=== PATIENT | female | born 1985 | race Caucasian/White ===

== ENCOUNTER 2020-02-02 08:39 | Outpatient (CLI) | payer OTHER ==
--- NOTE | 2020-02-03 01:46 | Ultrasound Report ---
Reason: UTERINE SIZE DATE DISCREPANCY Procedure Date: 02/02/2020 Accession Number: [id number] / [id number] Procedure: US - OB F/U or Repeat CPT Code: Final Report FULL RESULT: EXAM: FOLLOW-UP OBSTETRICAL ULTRASOUND EXAM DATE: 02/02/2020 09:39 AM. CLINICAL HISTORY: UTERINE SIZE DATE DISCREPANCY. COMPARISON: None. TECHNIQUE: Real-time sonographic evaluation of the fetus performed by the accounting professor. Multiple airport representative static images were saved for review. DATING: Established EGA 35 weeks 6 days with KYLE 03/02/2020 based on LMP. EGA 36 weeks 4 days with KYLE 02/26/2020 based on prior ultrasound. EGA 38 weeks 2 days with KYLE 02/14/2020 based on the current ultrasound. GENERAL EVALUATION Bustillo . Cardiac activity: 134 bpm. movement: Visualized. Presentation: Cephalic. Placenta: Anterior position. Amniotic fluid: Normal. JAXON 18.2 cm. MVP 5.2 cm. BIOMETRY Bi-Parietal Diameter (BPD): 9.4 cm, 38 weeks 3 days Head Circumference (HC): 33.8 cm, 38 weeks 5 days Abdominal Circumference (AC): 34.5 cm, 38 weeks 3 days Femur Length (FL): 7.4 cm, 37 weeks 5 days Estimated Weight: 3444 g, 96.9 percentile for 35 weeks 6 days. MATERNAL STRUCTURES Cervix: Not well seen. IMPRESSION: 1. Bustillo live intrauterine with gestational age 35 weeks 6 days based on LMP. 2. Macrosomia. Estimated weight at 96.9 percentile for 35 weeks 6 days. RADIA
== END 2020-02-02 08:40 | disposition home or self-care (01) ==
LOC: DI 08:39
PROVIDERS: ATTEND Nurse Practitioner Obstetrics & Gynecology
DX: O36.63X0 Maternal care for excessive fetal growth, third trimester, not applicable or unspecified (principal); Z3A.35 35 weeks gestation of pregnancy
CPT/HCPCS: 76816

== ENCOUNTER 2020-02-05 08:00 | Outpatient (CLI) | payer OTHER ==
[2020-02-05 19:33] LABS: TRICHOMONAS VAGINALIS DNA NEGATIVE (NEGATIVE)
== END 2020-02-05 23:59 | disposition home or self-care (01) ==
LOC: LAB.R 08:00
PROVIDERS: ATTEND Obstetrics & Gynecology
DX: Z36.85 Encounter for antenatal screening for Streptococcus B (principal)
CPT/HCPCS: 87491; 87591; 87661; 87797

== ENCOUNTER 2020-02-16 14:15 | Outpatient (CLI) | payer OTHER ==
[2020-02-16 14:43] VITALS: BP 137/84
[2020-02-16 15:17] LABS: CREATININE,URINE 85.7 mg/dL; PROTEIN/CREATININE RATIO,URINE 0.1 (<=0.2)
--- NOTE | 2020-02-16 15:43 | PROVIDER PROGRESS NOTE ---
- HPI Chief Complaint: Other (34yo G1 at 37 6/7 weeks presents with c/o increased swelling over the past couple of days. Was told in clinic had increased although not abnormal BP 130's/80's. Had a headache yesterday that spontaneously resolved. No other complaints now. No n/v/f/c or dysuria. No headache or visual changes. No epigastric or RUQ pain. Normal activity. Rare mild contraction. No fluid leak or bleeding.) Current : Current EDU 03/02/20 Gestation 37 Weeks and 6 Days 1 Para 0 Vital Signs Temperature 98.2 F 02/16/20 14:33 Heart Rate 91 02/16/20 14:33 Respiratory Rate 18 02/16/20 14:33 Blood Pressure 137/84 H 02/16/20 14:33 O2 Saturation 99 02/16/20 14:33 Temperature 98.2 F 02/16/20 14:33 Heart Rate 91 02/16/20 14:33 Respiratory Rate 18 02/16/20 14:33 Blood Pressure 137/84 H 02/16/20 14:33 O2 Saturation 99 02/16/20 14:33 - Procedures OB Procedure Performed: NST Diagnosis/Indication for NST: Other (See above) NST Procedure: Reactive. Category 1 Service Date of procedure: 02/16/20 Procedure Details: NST done. See above. Few mild contractions Findings: Abd soft, non-tender. Rpt BP (sitting) 124/84 VE deferred. - Plan Plan: DC home. Precautions given. Plan f/u on 02/18.
== END 2020-02-16 15:37 | disposition home or self-care (01) ==
LOC: WFO 14:15 → FBP 14:17 → WFO 15:37
PROVIDERS: ATTEND Obstetrics & Gynecology
DX: O12.03 Gestational edema, third trimester (principal); Z3A.37 37 weeks gestation of pregnancy
CPT/HCPCS: 82570; 84156; 99214

== ENCOUNTER 2020-03-05 13:35 | Observation (INO) | payer OTHER ==
[2020-03-05] MEDS ORDERED: SODIUM CHLORIDE FLUSH 0.9% 10 ML SYRINGE IVP PRN (13:37)
[2020-03-05] MEDS ORDERED: ONDANSETRON ODT 4 MG TABLET TL PRN (13:37)
[2020-03-05] MEDS ORDERED: ACETAMINOPHEN 325 MG TABLET PO PRN (13:37)
[2020-03-05] MEDS ORDERED: miSOPROStoL 100 MCG TABLET BC ONE (13:42)
[2020-03-05] MEDS ORDERED: LACTATED RINGERS 1,000 ML IV SCH (14:00)
[2020-03-05 14:40] LABS: BASOPHILS # (AUTO) 0.1 10^3/uL (0.0-0.1); BASOPHILS % (AUTO) 0.6 %; EOSINOPHILS # (AUTO) 0.5 10^3/uL (0.0-0.7); EOSINOPHILS % (AUTO) 4.5 %; HGB - HEMOGLOBIN 12.7 g/dL (12.0-16.0); LYMPHOCYTES # (AUTO) 1.1 10^3/uL (1.5-3.5); LYMPHOCYTES % (AUTO) 10.6 %; MEAN CORPUSCULAR HEMOGLOBIN 31.5 pg (27.0-31.0); MEAN CORPUSCULAR HGB CONC 34.7 g/dL (32.0-36.0); MEAN CORPUSCULAR VOLUME 90.8 fL (81.0-99.0); MONOCYTES # (AUTO) 0.7 10^3/uL (0.0-1.0); MONOCYTES % (AUTO) 6.1 %; NEUTROPHILS # (AUTO) 8.3 10^3/uL (1.5-6.6); NEUTROPHILS % (AUTO) 77.5 %; PLT - PLATELET COUNT 166 10^3/uL (130-450); RED BLOOD COUNT 4.03 10^6/uL (4.20-5.40); RED CELL DISTRIBUTION WIDTH 11.9 % (12.0-15.0); WHITE BLOOD COUNT 10.7 x10^3/uL (4.8-10.8)
[2020-03-05 15:04] LABS: CREATININE 0.7 mg/dL (0.4-1.0)
[2020-03-05 16:47] VITALS: BP 137/87
[2020-03-05] MEDS ORDERED: SODIUM CHLORIDE FLUSH 0.9% 10 ML SYRINGE IVP SCH (17:00)
--- NOTE | 2020-03-06 17:39 | HISTORY & PHYSICAL EXAMINATION ---
Chief Complaint - Chief Complaint Chief Complaint: Outpatient cervical ripening for pending post dates History of Present Illness - Admitted From Admitted From:: clinic - History Obtained From Records Reviewed: yes History obtained from: patient and records - History of Present Illness HPI Comment/Other: Patient is a 34-year-old G1, P0 at 40+3 weeks estimated gestational age here for induction of labor for pending postdates. She presents for outpatient cervical ripening. Had clinic visit a few hours prior to presentation ant vertex was confirmed and SVE was 2/80/-1 station. GBS negative. No contractions/VB/LOF. Meds/Allgy - Allergies Allergies/Adverse Reactions: Allergies Allergy/AdvReac Type Severity Reaction Status Date / Time iodine Allergy Rash Verified 03/05/20 14:28 Sulfa (Sulfonamide Allergy Rash Verified 03/05/20 14:28 Antibiotics) Review of Systems - Other Findings Other Findings: As per HPI otherwise remaining systems are negative. Exam - Vital Signs Reviewed Vital Signs: Yes - Physical Exam General Appearance: positive: No acute distress Respiratory: positive: No respiratory distress Abdomen: positive: Other (gravid, S&NT/ND) Skin: positive: Color nml Comments/Other: exam performed in clinic Conclusion/Plan - Lab Results Fish Bones: 03/05/20 14:20 03/05/20 14:45 - Other Other Results/Comments: Outpatient cervical ripening Confirmed vertex today in clinic SVE 2/80/-1 an hour prior to presentation Misoprostol 25 mcg BCx1 followed with 4 hours of cEFM If monitoring is Cat I and patient shows no sign of labor or distress, will DC to home after 4 hours of observation is complete
--- NOTE | 2020-03-07 12:01 | PROVIDER PROGRESS NOTE ---
- HPI Chief Complaint: Other (misoprostal cervical ripening.) Current : Current EDU 03/02/20 Gestation 40 Weeks and 3 Days 1 Vital Signs Temperature 37.1 C 03/05/20 13:57 Heart Rate 86 03/05/20 13:57 Respiratory Rate 18 03/05/20 13:57 Blood Pressure 133/85 H 03/05/20 13:57 O2 Saturation 100 03/05/20 13:57 Temperature 36.9 C 03/05/20 16:45 Heart Rate 81 03/05/20 16:45 Respiratory Rate 18 03/05/20 16:45 Blood Pressure 137/87 H 03/05/20 16:45 O2 Saturation 100 03/05/20 16:45 - Procedures OB Procedure Performed: NST (reactive NST with negative [employer]) Diagnosis/Indication for NST: Other (out pt ripening) NST Procedure: reactive NST with negative [employer] - Plan Plan: return tomorrow or when in labor.
== END 2020-03-05 18:52 | disposition home or self-care (01) ==
LOC: WFO 13:35 → FBP 13:35 → WFO 13:36 → FBP 13:36 → WFO 13:42 → FBP 13:44 → WFO 13:44
PROVIDERS: ADMIT Obstetrics & Gynecology; ATTEND Obstetrics & Gynecology
DX: Z34.03 Encounter for supervision of normal first pregnancy, third trimester (principal)
CPT/HCPCS: 36415; 82565; 84450; 85025; A9270; G0378

== ENCOUNTER 2020-03-06 13:13 | Inpatient (IN) | payer OTHER ==
[2020-03-06] MEDS ORDERED: LACTATED RINGERS 1,000 ML IV ONE (14:33)
[2020-03-06] MEDS ORDERED: OXYTOCIN/SODIUM CHLORIDE 500 ML IV ONE (14:33)
[2020-03-06] MEDS ORDERED: ONDANSETRON ODT 4 MG TABLET TL PRN (14:46)
[2020-03-06] MEDS ORDERED: miSOPROStoL 200 MCG TABLET PR PRN (14:46)
[2020-03-06] MEDS ORDERED: METHYLERGONOVINE 0.2 MG/ML VIAL IM PRN (14:46)
[2020-03-06] MEDS ORDERED: ONDANSETRON 4 MG/2 ML VIAL IVP PRN (14:46)
[2020-03-06] MEDS ORDERED: CARBOPROST TROMETHAMINE 250 MCG/ML AMP IM PRN (14:46)
[2020-03-06] MEDS ORDERED: SODIUM CHLORIDE FLUSH 0.9% 10 ML SYRINGE IVP PRN (14:46)
[2020-03-06] MEDS ORDERED: OXYTOCIN/SODIUM CHLORIDE 500 ML IV PRN (14:46)
--- NOTE | 2020-03-06 14:56 | HISTORY & PHYSICAL EXAMINATION ---
Admit History - Visit Reason Visit Reason: Other (Induction of labor) - : 1 Parity: 0 Care: positive: [facility] Risk/History: positive: Other (pending post dates) Complications This : positive: None Smoking Status: Never smoker - Other Maternal History Other Maternal History: Patient is a 34-year-old G1, P0 at 40+4 weeks estimated gestational age here for induction of labor for pending postdates. Patient presented yesterday evening for outpatient cervical ripening. She received 1 dose of misoprostol 25 mcg BC x1. She presents today for induction with Pitocin. Has been intermittent contractions. No loss of fluid, no vaginal bleeding. Endorses movement. generally uncomplicated other than potentially macrosomic . LGA : EFW 3444g 96.9%il on 02/02/20 LMP 05/27/2020. Initial U/S: 07/25/2019 @ 8.0wks c/w LMP dating. O pos/Rubella immune Genetic testing: Serum integrated screen - negative; CF neg FAS: 10/16/2020 WNL. Anterior placenta, no previa. 3VC. LGA (94%tile). Glucola 105 TDAP 12/05/2019 GBS & GC/CT negx2 HSV: denies Breast pump Rx previously provided MOD: Anticipate ; "wait and see" approach to pain management in labor; Meds/Allgy - Allergies Allergies/Adverse Reactions: Allergies Allergy/AdvReac Type Severity Reaction Status Date / Time iodine Allergy Rash Verified 03/05/20 14:28 Sulfa (Sulfonamide Allergy Rash Verified 03/05/20 14:28 Antibiotics) Review of Systems - Other Findings Other Findings: As per HPI, otherwise remaining systems are negative. Physical - Abdominal Exam Vital Signs: 130/79 88 Contraction Frequency (min/apart): Q5-6 min Contraction Intensity: positive: Mild to moderate - Monitoring Heart Rate Baseline: 140 mod zev 15x15 accels no decels Strip Review: positive: Category I - Presentation Presentation: positive: Vertex - Vaginal Exam Membranes: positive: Membranes intact Dilation (in cm): 2.5 Effacement (%): 90 Station: positive: -1 Cervical Position: positive: Midposition Plan for Labor - Plan For Labor Plan for Labor: IOL: Will proceed with pitocin induction Consider AROM if indicated FWB: vertex, well grown, GBS neg, Cat I tracing -CEFM PAIN: Fentanyl 50 mcg ; max cumulative dose 200 mcg and not be to given after 7 cm Epidural as desired Nitrous oxide contraindicated 2/2 pandemic In-patient care
[2020-03-06] MEDS: LACTATED RINGERS 1,000 ML IV SCH (14:58)
[2020-03-06] MEDS ORDERED: OXYTOCIN/SODIUM CHLORIDE 500 ML IV SCH (15:00)
[2020-03-06] MEDS ORDERED: SODIUM CHLORIDE FLUSH 0.9% 10 ML SYRINGE IVP SCH (17:00)
--- NOTE | 2020-03-06 18:07 | PROVIDER PROGRESS NOTE ---
Subjective - Prog Note Date Prog Note Date: 03/06/20 Prog Note Time: 18:06 Assessment/Plan - Problem List (1) Encounter for induction of labor Impression: 140 mod zev 15x15 accels no decels TOCO: Q2-5 min Doing well
[2020-03-06] MEDS: fentaNYL 100 MCG/2 ML VIAL IVP PRN (23:25)
[2020-03-07] MEDS ORDERED: ROPIVACAINE 0.2% 0 MG/0 ML BAG EP ONE (00:04)
[2020-03-07] MEDS ORDERED: LIDOCAINE-MPF 1% 30 ML VIAL ONE ×2 (00:27→01:15)
[2020-03-07] MEDS ORDERED: miSOPROStoL 200 MCG TABLET ONE (00:28)
[2020-03-07] MEDS ORDERED: LIDOCAINE 1% 50 ML MDV SUBQ ONE ×2 (01:00→01:15)
[2020-03-07] MEDS: LACTATED RINGERS 1,000 ML IV SCH (01:09)
[2020-03-07] MEDS ORDERED: SIMETHICONE CHEW 80 MG TABLET PO PRN (02:19)
[2020-03-07] MEDS ORDERED: HYDROCORTISONE 1% CREAM 28 GM TUBE PR PRN (02:19)
[2020-03-07] MEDS ORDERED: LIDOCAINE JELLY 2% 30 ML TUBE TOP PRN (02:20)
[2020-03-07] MEDS: ACETAMINOPHEN 325 MG TABLET PO PRN ×2 (02:20→09:01)
[2020-03-07] MEDS: fentaNYL 100 MCG/2 ML VIAL IVP PRN (02:21)
--- NOTE | 2020-03-07 02:38 | DELIVERY NOTE ---
Delivery Note - Labor Labor: positive: Induced by oxytocin - Infant Delivery Method Delivery Method: positive: Spontaneous vaginal delivery - Cervical Ripening Method Cervical Ripening Method: positive: Misoprostil - Presentation Presentation: positive: Vertex - Nuchal Cord Nuchal Cord: positive: None - Anesthetic Anesthetic Type: - Amniotic Fluid Description Amniotic Fluid Description: positive: Clear - Episiotomy Type Episiotomy Type: positive: None - Laceration Laceration: positive: Other (Stellate 2nd degree with avulsion of hte left labia and vertical tear along the medial aspect of the left labia into the periurethral region. First degree midline and right labial tear.) - Suture Suture Type: positive: Vicryl Suture Size: positive: 3-0 - [place] : positive: Placed in direct skin contact with mother, Warmed, [place] used [place] sex: positive: Female - Cord Cord: positive: 3 vessels - Placenta Placenta: positive: Intact, Expressed - Estimated Blood Loss Estimated Blood Loss (in cc): 500 (due to laceration) - Post Delivery Events Post Delivery Events: positive: No post delivery events - Delivery Comments (Free Text/Narrative) Delivery Comments (Free Text/Narrative): STAGE I: Patient is a 34-year-old G1, P0 at 40+4 weeks estimated gestational age admitted for induction of labor. She was admitted to observational status on 03/05/2020 for cervical ripening with misoprostol 25 mcg buccal x1 and discharged to home after 4 hours of extended monitoring. She was admitted inpatient on 03/06/2020 for induction of labor. Initial SVE was 2.5/90/-1 station. She was GBS negative; antibiotic prophylaxis was not indicated. She was started on Pitocin for induction. She reached a max dose of 12 milliunits/min. At 2109 on 03/06/2020, cervical exam was 3/90/0/soft/mid. Spontaneous rupture of membranes occurred at 2232 and was notable for passage of clear fluid. At 0010 patient was noted to be completely dilated. She did not receive an epidural for pain management. Category 1 tracing throughout stage I. STAGE II: She pushed well for 36 minutes to deliver a viable female infant from vertex presentation.She delivered from ZEYNEP presentation and the right shoulder delivered without difficulty from the anterior position. No nuchal cord was noted. Infant was delivered to maternal chest. Cord was clamped x2 and cut after cessation of pulsation. Apgars were 9 and 9. Weight pending. STAGE III: Placenta delivered at 0104 on 03/07/2020 with manual expression and gentle downward traction on the cord. It was examined and found to be intact. He was also noted to have a small cyst succenturiate lobe.Perineum was examined. There was a stellate second-degree laceration with avulsion of the left labia majora. The laceration extended vertically into the periurethral area. It was repaired with 3-0 Vicryl with the in the usual sterile fashion in layers. A red rubber catheter was inserted into the urethra to ensure patency of the urethra was maintained during the repair. A first-degree midline laceration was also repaired with 3-0 Vicryl as was a small first-degree laceration of the medial aspect of the right labia. Good hemostasis was noted. Shortly after delivery, patient received 600 mcg of misoprostol buccally in add ition to IV pitocin. Total EBL was 500 cc; mainly attributed to laceration related bleeding.Good hemostasis was noted at close of the procedure. Procedure was well-tolerated without complication. Blood pressures were noted to be mildly elevated immediately .
[2020-03-07] MEDS ORDERED: LACTATED RINGERS 1,000 ML IV SCH (03:00)
[2020-03-07] MEDS: ACETAMINOPHEN 500 MG TABLET PO SCH ×3 (06:13→21:47)
[2020-03-07] MEDS: DOCUSATE SODIUM 100 MG CAPSULE PO PRN ×2 (09:01→21:47)
[2020-03-08] MEDS: ACETAMINOPHEN 500 MG TABLET PO SCH (06:00)
[2020-03-08] MEDS: DOCUSATE SODIUM 100 MG CAPSULE PO PRN (08:30)
[2020-03-08 08:36] VITALS: BP 122/82
[2020-03-08] MEDS ORDERED: LIDOCAINE JELLY 2% 6 ML JEL.PF.APP TOP PRN (09:00)
--- NOTE | 2020-03-08 11:03 | DISCHARGE SUMMARY ---
Discharge Summary Admit Date: 03/06/20 Discharge Date: 03/08/20 Discharging Provider: Sravan Champion MD Primary Care Provider: Jordyn Gonzalez Code Status: Attempt Resuscitation Condition at Discharge: Good Discharge Disposition: 01 Home, Self Care Discharge Facility Name: [facility] Allergies/Adverse Reactions: Allergies Allergy/AdvReac Type Severity Reaction Status Date / Time iodine Allergy Rash Verified 03/05/20 14:28 Sulfa (Sulfonamide Allergy Rash Verified 03/05/20 14:28 Antibiotics) tree nut Allergy Anaphylaxis Verified 03/06/20 19:02
--- NOTE | 2020-03-08 11:32 | Discharge Plan ---
Discharge Plan Problem Reviewed?: Yes Disposition: Home, Self Care Condition: Good Diet: Regular Activity Restrictions: pelvic rest Shower Restrictions: No Weight Bearing: Full Weight No Smoking: If you smoke, Please STOP! Call for help. Follow-up with: Annabel Singleton ARNP [Primary Care Provider] -
--- NOTE | 2020-03-08 12:43 | DISCHARGE SUMMARY ---
Physician: Sravan Capellan MD DATE OF ADMISSION: 03/06/2020 DATE OF DISCHARGE: 03/08/2020 ADMITTING DIAGNOSIS 40 weeks 3 days. DISCHARGE DIAGNOSIS: 40 weeks 3 days. PROCEDURES 1. Cervical ripening with misoprostol. 2. Pitocin augmentation. 3. Assisted vaginal delivery. 4. Repair of laceration. PRESENTING HISTORY: Patient is a 34-year-old G1, P0 female whose EDC was 03/01/2020. This made her 40 weeks +4 days. She had an estimated weight of 96.9 percentile running in the 9 pound range with an ultrasound done at 36 weeks. She initially started her care [facility]. At 6 weeks EGA she transferred to our clinic at 34 weeks EGA. Her course has been unremarkable. Her 50 gram Glucola was 105. Her STI checks were all negative. She was noted to be O positive for her blood type. Both she and her were 9 pounds plus at time of delivery. LABORATORIES: Patient previously had a creatinine, which was 0.7. Her AST was 21. Her CBC showed platelets of 166, hemoglobin was 12.7, white count of 10.7. HOSPITAL COURSE: The patient admitted, at which time she had Pitocin augmentation. She spontaneously ruptured and 2 hours later following a 15- minute second stage, delivered a live female infant with a second-degree stellate tear. The had Apgars of 9 and 9. The infant weighed 9 pounds 4 ounces. Her course has been unremarkable. She is taking a regular diet. She is currently managing her pain with Tylenol only. She is not taking any Motrin because of some blood pressure concerns. She is instructed to follow up in the clinic in 1 week. We have discussed the issues of , contraception, mastitis. TD: 03/08/2020 11:25 Revised report 03/10/2020 katie Added Discharge Date Orig. signed 03/09/2020@0844 PANCHO
--- NOTE | 2020-03-08 13:34 | Labor Flowsheet ---
Labor Flowsheet Datetime Report Generated by CPN: 03/08/2020 13:34 Datetime: 03/08/2020 08:10 Pulse: 72 SpO2 (%): 99 Datetime: 03/08/2020 08:09 VITAL SIGNS NBP Sys/Angela/Mean (mmHg): 122 : 82 : 92 Datetime: 03/07/2020 02:31 Stage of : Respirations: 18 Temperature (C): 37.0 Temperature Route: Oral PAIN Pain Scale: 2 Pain Presence: Intermittent Pain Type: Ache Datetime: 03/07/2020 02:30 LaborFlag: Labor Datetime: 03/07/2020 01:52 Cervical Ripening Agents: Cytotec @ Datetime: 03/07/2020 01:04 Stage 2 Comments: placenta del Datetime: 03/07/2020 00:18 Vaginal Exam Comments: pushing Datetime: 03/07/2020 00:16 Medication Comments: pit off Datetime: 03/07/2020 00:15 Pushing Position: Pushing Left Side Datetime: 03/07/2020 00:10 VAGINAL EXAM Dilatation (cm): 10.0 Effacement (%): 100 Station: 1 Exam by: HMahala STAGE 2 Pushing: No Urge to Push Datetime: 03/06/2020 23:51 Communication Comments: Pt wants epidural anesthesia called Datetime: 03/06/2020 23:30 UTERINE ACTIVITY Monitor Mode: External Frequency (min): 2-3.5 Quality: Mild Duration (sec): 60-80 Pattern: Normal: <= 5 Contractions in 10 Minutes Resting Tone (Palpate): Relaxed ASSESSMENT A Monitor Mode: Telemetry FHR Baseline Rate : 135 FHR Baseline Changes: No Baseline Change Variability: Moderate 6-25 bpm Accelerations: 15X15 Decelerations: Early Datetime: 03/06/2020 23:25 Pain Location: Abdomen Pain Relief Measures: Pain Medication Given Datetime: 03/06/2020 23:00 Monitor Interventions for FHR: Ultrasound Adjusted Category: Category I Datetime: 03/06/2020 22:45 Pitocin Checklist: At Least 1 Acceleration of 15 bpm x 15 Seconds in 30 Minutes or Adequate Variabi lity; No More than 1 Late Deceleration Occurred in Past 30 Minutes; No More than 2 Variable Decelerat ions > 60 Seconds in Duration and decreasing >60 bpm in 30 minutes; No More than 5 Uterine Contractio ns in 10 Minutes for any 20 Minute Interval Datetime: 03/06/2020 22:32 Membrane Status: Ruptured Membranes Ruptured Date/Time: 03/06/2020 22:32 Membranes Rupture Method: Spontaneous Amniotic Fluid Color: Clear Amniotic Fluid Amount: Moderate Amniotic Fluid Odor: Normal Vaginal Bleeding: None Datetime: 03/06/2020 22:14 MEDICATIONS Pitocin (milliunits): Increased to @ (Annotations: 12) Datetime: 03/06/2020 21:10 Cervix, Consistency: Soft Cervix, Position: Midposition COMMUNICATION Communication: Call/Page Placed to Provider Provider Notified (Name): Dr Gonzalez Notification Reason: Status Update; Status; Labor Status; Uterine Activity Datetime: 03/06/2020 19:41 MATERNAL ASSESSMENT Level of Consciousness: Alert DTR's/Clonus: DTRs 2+ Headache: Denies Breath Sounds, Left: Clear and Equal Breath Sounds, Right: Clear and Equal Nausea/Vomiting: Denies RUQ Epigastric Pain: Denies
== END 2020-03-08 13:15 | disposition home or self-care (01) | DRG 807 ==
LOC: WFO 13:13 → FBP 13:15 → WFO 14:45 → FBP 14:46
PROVIDERS: ADMIT Obstetrics & Gynecology; ATTEND Obstetrics & Gynecology
PROC: 3E033VJ Introduction of Other Hormone into Peripheral Vein, Percutaneous Approach (ICD-10-PCS; 2020-03-06)
PROC: 10E0XZZ Delivery of Products of Conception, External Approach (ICD-10-PCS; principal; 2020-03-07)
PROC: 0KQM0ZZ Repair Perineum Muscle, Open Approach (ICD-10-PCS; 2020-03-07)
DX: O48.0 Post-term pregnancy (principal); Z37.0 Single live birth; O70.1 Second degree perineal laceration during delivery; Z3A.40 40 weeks gestation of pregnancy
CPT/HCPCS: A9270; J7120